=== PATIENT | female | born 1960 ===

== ENCOUNTER 2016-12-20 12:29 | Outpatient (RCR) | payer OTHER | END 2017-01-02 | disposition home or self-care (01) | LOC: WCC 12:29 | DX: I99.8 Other disorder of circulatory system (principal); Z90.13 Acquired absence of bilateral breasts and nipples | CPT/HCPCS: G0277; G0463; 99204 ==

== ENCOUNTER 2017-01-03 09:08 | Outpatient (RCR) | payer OTHER | END 2017-02-02 | disposition home or self-care (01) | LOC: WCC 09:08 | DX: I99.8 Other disorder of circulatory system (principal); Z90.13 Acquired absence of bilateral breasts and nipples | CPT/HCPCS: G0277 ×3 ==